=== PATIENT | male | born 1970 | race Hispanic/Latino ===

== ENCOUNTER → 2018-08-29 | Outpatient (CLI) | payer OTHER ==
--- NOTE | 2018-08-29 09:05 | Diagnostic Imaging Report ---
Examination: Biphasic upper GI examination. Clinical indication: Reflux. Comparison examination: None. Technique: Effervescent crystals and barium were ingested by mouth and multiple fluoroscopic spot images of the esophagus, stomach, and proximal small bowel were obtained. Total fluoroscopy time: 1.6 minutes Air Kerma: 133.6 mGy Findings: Esophagus: Mucosa and distensibility are normal. Gastroesophageal junction: Moderate reflux into the middle third of the esophagus. No hiatal hernia. Stomach: Unremarkable mucosa and distensibility. Duodenum: Multiple and sweep are normal. Duodenal-jejunal transition at the expected location. Impression: Moderate gastroesophageal reflux. Otherwise unremarkable biphasic upper GI examination. Signed by: Dr. Gregory Morrison M.D. on 08/29/2018 9:02 AM
== END ==
LOC: DX 08:16
PROVIDERS: ATTEND Family Medicine
DX: K21.9 Gastro-esophageal reflux disease without esophagitis (principal)
CPT/HCPCS: 74246